=== PATIENT | female | born 1950 | race Caucasian/White ===

== ENCOUNTER 2017-08-30 07:40 | Day surgery (SDC) | payer MEDICARE, MEDICAID ==
[2017-08-30] VITALS (9 sets, daily range): BP systolic 106–135; BP diastolic 65–80
[~2017-08-30] VITALS: Ht 177.8 cm; Wt 89.0 kg
[~2017-08-30 07:40] MED LIST: AMIT100T7 PO; ASPI-1264 PO; BUPR300T7 PO; LORA10TA7 PO; MSC100T PO; WARF1TAB83 PO; albuterol 2.5 MG/3 ML nebule NEB ONE; cefazolin/dext.iso 2gm/50ml 50 ML IV ONE; famotidine 20mg tablet PO ONE; ringers solution, lacted 1,000 ML IV SCH
[2017-08-30] MEDS ORDERED: albuterol 2.5 MG/3 ML nebule NEB ONE (08:20)
[2017-08-30 08:33] LABS: BASOPHILS % (AUTO) 0 % (0-1); EOSINOPHILS # (AUTO) 0.1 X10'3 (0-0.9); EOSINOPHILS % (AUTO) 2.4 % (0-6); LYMPHOCYTES # (AUTO) 1.3 X10'3 (1.1-4.8); LYMPHOCYTES % (AUTO) 23.8 % (21-51); MEAN CORPUSCULAR HEMOGLOBIN 31.6 PG (27.0-31.0); MEAN CORPUSCULAR HGB CONC 34.1 % (33.0-36.5); MEAN CORPUSCULAR VOLUME 92.5 FL (78-98); MEAN PLATELET VOLUME 9.6 FL (7.4-10.4); MONOCYTES # (AUTO) 0.4 X10'3 (0-0.9); MONOCYTES % (AUTO) 7.5 % (2-12); NEUTROPHILS # (AUTO) 3.7 X10'3 (1.8-7.7); NEUTROPHILS % (AUTO) 66.3 % (42-75); PRE OP HEMATOCRIT 48.1 % (35.0-45.0); PRE OP HEMOGLOBIN 16.4 g/dL (12.0-16.0); PRE OP PLATELET COUNT 175 X10'3 (140-440); RED CELL DISTRIBUTION WIDTH 13.9 % (11.5-14.5)
[2017-08-30 08:46] LABS: INR 1.2 INR; PRE OP PARTIAL THROMB. TIME 30 SECONDS (22-35)
[2017-08-30 08:58] LABS: ALBUMIN 3.6 G/DL (3.4-5.0); ALBUMIN/GLOBULIN RATIO 0.9 (1.1-1.5); ALKALINE PHOSPHATASE 127 IU/L (46-116); BLOOD UREA NITROGEN 16 MG/DL (7-18); BUN/CREATININE RATIO 14.2 (6.6-38.0); CHLORIDE 105 MMOL/L (99-107); CREATININE 1.13 MG/DL (0.40-0.90); PRE OP ALT 56 U/L (30-65); PRE OP ANION GAP 6 (8-16); PRE OP AST 47 U/L (10-37); PRE OP BILIRUB, TOTAL 0.5 MG/DL (0.0-1.0); PRE OP GLUCOSE 90 MG/DL (70-104); PRE OP POTASSIUM 4.2 MMOL/L (3.4-5.1); PRE OP SODIUM 140 MMOL/L (135-145); TOTAL CARBON DIOXIDE 28.8 MMOL/L (24-32); TOTAL PROTEIN 7.6 G/DL (6.4-8.2); eGFR 48 ML/MIN
[2017-08-30] MEDS ORDERED: ceFAZolin 1000mg inj ONE (10:24)
[2017-08-30] MEDS ORDERED: sevoflurane 250ml liquid IH ONE (10:32)
[2017-08-30] MEDS ORDERED: midazolam 2 mg/2 ml injection ONE (10:35)
[2017-08-30] MEDS ORDERED: fentaNYL /PF 50mcg/ml 5ml ampule ONE (10:37)
[2017-08-30] MEDS ORDERED: propofol inj 20 ML IV ONE (10:39)
[2017-08-30] MEDS ORDERED: ringers solution, lacted 1,000 ML IV SCH (11:03)
[2017-08-30] MEDS ORDERED: ondansetron/PF 4mg/2ml inj IV PRN (11:05)
[2017-08-30] MEDS ORDERED: morphine 4 MG/ML inj SYRINge IV PRN ×2 (11:05)
[2017-08-30] MEDS ORDERED: neostigmine methylsulfate 1 MG/ML 10ml vial ONE (11:05)
[2017-08-30] MEDS ORDERED: rocuronium 10mg/ml inj IV ONE (11:05)
[2017-08-30] MEDS ORDERED: proCHLORperazine 10 MG/2 ml inj IV PRN (11:05)
[2017-08-30] MEDS ORDERED: meperidine/PF 50mg/ml syringe IV PRN ×3 (11:05)
[2017-08-30] MEDS ORDERED: glycopyrrolate 0.2mg/ml inj ONE (11:05)
== END 2017-08-30 12:27 | disposition home or self-care (01) ==
LOC: PAS 07:40
PROVIDERS: ATTEND Surgery
DX: K43.2 Incisional hernia without obstruction or gangrene (principal); F17.210 Nicotine dependence, cigarettes, uncomplicated; G89.29 Other chronic pain; F41.9 Anxiety disorder, unspecified; I10 Essential (primary) hypertension; I25.2 Old myocardial infarction; F32.9 Major depressive disorder, single episode, unspecified; M19.90 Unspecified osteoarthritis, unspecified site; J44.9 Chronic obstructive pulmonary disease, unspecified; Z79.891 Long term (current) use of opiate analgesic; Z83.3 Family history of diabetes mellitus; Z95.0 Presence of cardiac pacemaker; Z95.2 Presence of prosthetic heart valve; Z90.89 Acquired absence of other organs; Z90.710 Acquired absence of both cervix and uterus; Z90.49 Acquired absence of other specified parts of digestive tract; Z87.11 Personal history of peptic ulcer disease; Z79.82 Long term (current) use of aspirin; Z79.01 Long term (current) use of anticoagulants; Z88.6 Allergy status to analgesic agent; Z88.2 Allergy status to sulfonamides; Z88.1 Allergy status to other antibiotic agents; Z88.3 Allergy status to other anti-infective agents; Z79.1 Long term (current) use of non-steroidal anti-inflammatories (NSAID); Z88.8 Allergy status to other drugs, medicaments and biological substances; Z98.51 Tubal ligation status; Z98.890 Other specified postprocedural states; Z79.899 Other long term (current) drug therapy
CPT/HCPCS: 36415; 49570; 80053; 85025; 85610; 85730; 93005; 94640; J0690; J2250; J2704; J2710; J3010; J3490; J7120; A7000; C1758